=== PATIENT | female | born 1965 | race Two or more races ===

== ENCOUNTER 2021-10-01 17:24 | Emergency (ER) | payer OTHER ==
[~2021-10-01] VITALS: Ht 167.6 cm; Wt 78.0 kg
[2021-10-01 17:25] VITALS: BP 168/99
== END 2021-10-01 18:37 | disposition home or self-care (01) ==
LOC: ER 17:24
DX: H43.393 Other vitreous opacities, bilateral (principal); E78.00 Pure hypercholesterolemia, unspecified; R03.0 Elevated blood-pressure reading, without diagnosis of hypertension
CPT/HCPCS: 82962; 99281

== ENCOUNTER 2021-10-30 15:12 | Emergency (ER) | payer OTHER ==
[~2021-10-30] VITALS: Ht 167.6 cm; Wt 75.0 kg
[2021-10-30] MEDS ORDERED: AMLODIPINE 5MG TABLET PO ONE (17:45)
[2021-10-30] MEDS ORDERED: IBUPROFEN 400MG TABLET PO ONE (17:45)
[2021-10-30] MEDS ORDERED: MECLIZINE 25MG TABLET PO ONE (17:45)
[2021-10-30 18:43] LABS: EOSINOPHILS % 0.6 % (0.0-5.0); HEMATOCRIT. 46.5 % (36.0-48.0); HEMOGLOBIN. 15.9 g/dL (12.0-16.0); LYMPHOCYTES % 38.2 % (20.0-50.0); MEAN CORPUSCULAR HEMOGLOBIN 28.9 pg (28.0-32.0); MEAN CORPUSCULAR VOLUME 84.5 fL (81.0-99.0); MEAN PLATELET VOLUME 8.9 fl (7.4-10.4); MONOCYTES % 4.1 % (2.0-8.0); NEUTROPHILS % 56.1 % (40.0-76.0); PLATELET 226 x1000/uL (130-400); RED BLOOD CELL COUNT 5.51 mill/uL (4.2-5.4); RED CELL DISTRIBUTION WIDTH 13.7 % (11.6-14.6)
[2021-10-30 19:02] LABS: CHLORIDE 106 mEq/L (98-107)
[2021-10-30] MEDS ORDERED: MECL-159 MT (20:02)
[2021-10-30 20:15] VITALS: BP 133/52
== END 2021-10-30 20:31 | disposition home or self-care (01) ==
LOC: ER 15:12
DX: R42 Dizziness and giddiness (principal); H93.12 Tinnitus, left ear; R51.9 Headache, unspecified; E78.00 Pure hypercholesterolemia, unspecified
CPT/HCPCS: 36415; 80053; 85025; 93005; 99284; J8597